=== PATIENT | male | born 1970 | race African-American/Black ===

== ENCOUNTER 2021-12-05 19:52 | Emergency (ER) | payer SELFPAY ==
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
[2021-12-05] MEDS ORDERED: TETANUS & DIPHTHERIA TOX,ADULT 0.5 ML VIAL ONE (20:57)
[2021-12-05] MEDS ORDERED: CEFAZOLIN SODIUM 1 GM/VIAL ONE (20:57)
[2021-12-05] MEDS ORDERED: NA CHLORIDE 0.9% 100 ML IV ONE (20:59)
[2021-12-05 21:05] LABS: Absolute Lymphocytes (CBC) 1.9 K/uL (0.7-4.9); Hematocrit 39.3 % (39.6-49.0); Lymphocytes % 11.8 % (15.3-44.8); MPV 8.5 fL (7.6-11.3)
[2021-12-05 21:22] LABS: Potassium 4.1 mmol/L (3.5-5.1)
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
[2021-12-05] MEDS ORDERED: LIDOCAINE 1% MPF 5 ML VIAL ONE (23:07)
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
[2021-12-06 00:38] VITALS: O2SAT 100
[2021-12-06 00:42] VITALS: BP 138/94; TEMP 98.3
== END 2021-12-06 00:25 | disposition short-term general hospital (02) ==
LOC: ER 19:52
PROC: 0JQ60ZZ Repair Chest Subcutaneous Tissue and Fascia, Open Approach (ICD-10-PCS; principal; 2021-12-06)
DX: S21.111A Laceration without foreign body of right front wall of thorax without penetration into thoracic cavity, initial encounter (principal); J93.81 Chronic pneumothorax; J98.2 Interstitial emphysema; F17.210 Nicotine dependence, cigarettes, uncomplicated; Z23 Encounter for immunization; Z20.822 Contact with and (suspected) exposure to COVID-19
CPT/HCPCS: 36415; 71045; 71260; 80048; 85025; 86850; 86900; 86901; 90471; 90714; 96365; 96366; 99285; J0690; Q9967; U0003

== ENCOUNTER 2021-12-22 13:36 | Emergency (ER) | payer SELFPAY ==
--- OUTSIDE RECORDS SUMMARY | 2021-12-22 13:38 | XMS REPORT | Continuity of Care Document ---
:1970 Author Organization [facility] t Address [address] [place] [address] Care Team Providers Name Role Phone Pcp, Does Not Have A Primary Care Physician KELLY JAMES Attending Clinician Unavailable Brenton EDMONDS Attending Clinician Unavailable Brenton Doyle Attending Clinician Doctor Unassigned, Name Attending Clinician Unavailable MELCHOR MILLER Admitting Clinician Unavailable Brenton EDMONDS Admitting Clinician Unavailable Payers Payer Name Policy Type Policy Number Effective Date Expiration Date S [facility] [place] [place] MEDICAID PENDING PENDING 2021 00:00:00 Problems Condition Condition Condition Status Onset Resolution Last Treating Co mments Source Name Details Category Date Date Treatment Clinician Date No known No known Disease Unive rs active active ity of problems problems [facility] Allergies, Adverse Reactions, Alerts Allergy Allergy Status Severity Reaction(s) Onset Inactive Treating Comm ents Source Name Type Date Date Clinician NO KNOWN Drug Active [facility] ALLERGIE Class [facility] [place] [facility] Social History Social Habit Start Date Stop Date Quantity Comments Source Exposure to Not sure [facility] SARS-CoV-2 (event) Medica l Branch Sex Assigned At [birth year] [facility] 00:00:00 00:00:00 Medical Branch Smoking Status Start Date Stop Date Source Unknown if ever smoked [facility] Medications Ordered Filled Start Stop Current Ordering Indication Dosage Frequency Signature Comments Components Source Medication Medication Date Date Medication? Clinician (SIG) Name Name ondansetron No 4mg 4 mg, Univ ers (ZOFRAN-ODT 11-18 Oral, ity of ) 02:00: 01:02 ONCE, 1 [place] disintegrat 00 :00 dose, On Medi ximena ing tablet e Branch 4 mg 11/17/21 at 1999, Routine ondansetron Yes [id number] 4mg Take 1 Univers 4 mg 1-25 tablet by ity of disintegrat 00:00: mouth [place] ing tablet 00 every 8 Medica l (eight) Branch hours as needed for Nausea and Vomiting (N/V). acetaminoph Yes 1{tbl} Take 1 Un lesa en-codeine 8-20 tablet by ity of 300-30 mg 00:00: mouth [place] tablet 00 every 6 Medical (six) Branch hours as needed for Pain (scale 4-6). acetaminoph Yes 1{tbl} Take 1 Un lesa en-codeine 8-20 tablet by ity of 300-30 mg 00:00: mouth [place] tablet 00 every 6 Medical (six) Branch hours as needed for Pain (scale 4-6). neomycin-po 2015-10 Yes 4[drp] Place 4 U nivers lymyxin-hyd 2-15 Drops in ity of rocortisone 00:00: left ear 3 [place] (CORTISPORI 00 (three) Medic al N OTIC times Branch SUSPENSION) daily. 3.5-10,000- 1 mg/mL-unit/ mL-% otic susp traMADOL 2015-10 Yes 50mg Take 1 Univers (ULTRAM) 50 2-15 tablet by ity of mg tablet 00:00: mouth [place] 00 every 6 Medical (six) Branch hours as needed for Pain (scale 7-10). neomycin-po 2015-10 Yes 4[drp] Place 4 U nivers lymyxin-hyd 2-15 Drops in ity of rocortisone 00:00: left ear 3 [place] (CORTISPORI 00 (three) Medic al N OTIC times Branch SUSPENSION) daily. 3.5-10,000- 1 mg/mL-unit/ mL-% otic susp traMADOL 2015-10 Yes 50mg Take 1 Univers (ULTRAM) 50 2-15 tablet by ity of mg tablet 00:00: mouth [place] 00 every 6 Medical (six) Branch hours as needed for Pain (scale 7-10). ibuprofen 2015-10 Yes 400mg Take 1 Unive rs (MOTRIN) 0-31 tablet by ity of 400 mg 00:00: mouth [place] tablet 00 every 6 Medical (six) Branch hours as needed for Pain (scale 4-6). ibuprofen 2015-10 Yes 400mg Take 1 Unive rs (MOTRIN) 0-31 tablet by ity of 400 mg 00:00: mouth [place] tablet 00 every 6 Medical (six) Branch hours as needed for Pain (scale 4-6). Immunizations Ordered Filled Immunization Date Status Comments [facility] e Immunization Name Name Td 2018-06-12 Completed [facility] Td 2018-06-12 Completed [facility] Td 2018-01-23 Completed [facility] Td 2018-01-23 Completed [facility]:00:00 [facility] Vital Signs Vital Name Observation Time Observation Value Comments Source Systolic blood 2021-11-18 00:32:00 147 mm[Hg] Univer sity of pressure [facility] Diastolic blood 2021-11-18 00:32:00 99 mm[facility]Hg[facility] Heart rate 2021-11-18 00:32:00 89 /min [facility] Body temperature 2021-11-18 00:32:00 36.78 Angela [facility] Respiratory rate 2021-11-18 00:32:00 14 /min [facility] Body weight 2021-11-18 00:32:00 63.504 kg [facility] BMI 2021-11-18 00:32:00 19.53 kg/m2 [facility] Oxygen saturation in 2021-11-18 00:32:00 100 /min University Arterial blood by [facility] Pulse oximetry Branch Procedures Procedure Date / Time Performed Performing Clinician Sourc e URINALYSIS 2021-11-18 01:02:00 Sammy Edmonds [facility] CONSENT/REFUSAL FOR 2021-11-18 00:23:39 [facility]igned, [facility] AND Name Medical Branch TREATMENT Encounters Start End Encounter Admission Attending Care Care Encounter Source Date/Time Date/Time Type Type Clinicians Facility Department ID 2021-12-06 2021-12-06 Emergency E ERIKA, [facility] [address] [facility] 01:20:00 05:22:00 FISH 2021-11-17 2021-11-17 [facility] [id number] Univers 18:34:00 19:54:00 SAMMY [facility] 2021-11-17 2021-11-17 Emergency [facility] [id number] Univers 18:34:00 19:54:00 Sammy HOLCOMB [id number] i ty of [place] [id number] [facility] [id number] [facility] 084 Branch 2021-11-17 2021-11-17 Orders Doctor PORTER [id number] Univers 00:00:00 00:00:00 Only Unassigned, ANGY [id number] ity of [place] [facility] [id number] [facility] [id number] [facility] 009 Branch 2018-06-12 2018-06-13 Emergency X [facility] ERT [id number] Univers 21:24:59 01:40:00 [facility] Results This patient has no known results.
--- NOTE | 2021-12-22 13:47 | EDPHYS ---
Physician Documentation [facility] Name: Stephen Lazo Age: 51 yrs Sex: Male : 1970 Arrival Date: 12/22/2021 Time: 13:37 Bed Waiting Private MD: ED Physician Monique Melissa HPI: 12/22 15:29 This 51 yrs old Black Male presents to ER via Ambulatory with complaints of Suture kb Removal. 15:29 The patient has kimberly on the anterior aspect of right upper chest. Previous kb treatment: The patient was initially treated on December 06, 2021, the care was rendered at [facility], Treatment type: The patient's original treatment included kimberly. Sutures/kimberly progress: The patient has no c/o's. The wound is well-healing with no redness, swelling, discharge, or dehiscence reported. The patient has not experienced similar symptoms in the past. The patient has not recently seen a physician. Historical: - Allergies: 13:44 No Known Allergies; jl7 - Home Meds: 13:44 None [Active]; jl7 - PMHx: 13:44 None; jl7 - PSHx: 13:44 None; jl7 - Immunization history:: Adult Immunizations up to date. - Social history:: Smoking status: Patient reports the use of cigarette tobacco products, smokes one pack cigarettes per day. ROS: 15:27 Constitutional: Negative for fever, chills, and weight loss. kb 15:27 Skin: Positive for of the anterior aspect of right upper chest, kimberly in place. 15:27 All other systems are negative. Exam: 15:27 Constitutional: This is a well developed, well nourished patient who is awake, alert, kb and in no acute distress. Head/Face: Normocephalic, atraumatic. ENT: Moist Mucous membranes Respiratory: Respirations even and unlabored. No increased work of breathing. Talking in full sentences MS/ Extremity: Pulses equal, no cyanosis. Neurovascular intact. Full, normal range of motion. Neuro: Awake and alert, GCS 15, oriented to person, place, time, and situation. Moves all extremities. Normal gait. Psych: Awake, alert, with orientation to person, place and time. Behavior, mood, and affect are within normal limits. 15:27 Skin: Wound recheck: Staple laceration closure: the wound is healing well, the edges are well approximated, no evidence of dehiscence, no drainage, no erythema, no swelling. Vital Signs: 13:42 Pulse 91; Resp 15; Temp 98.1; Pulse Ox 98% ; Weight 63.5 kg; Pain 0/10; jl7 13:45 BP 144 / 99; jl7 Procedures: 15:27 Suture/Staple removal: Removed 4 kimberly, from anterior aspect of right upper chest, kb site appears well healed, Patient tolerated well. MDM: 13:46 Patient medically screened. kb 15:28 Data reviewed: vital signs, nurses notes. Data interpreted: Pulse oximetry: on room air kb is 98 %. Interpretation: normal. Counseling: I had a detailed discussion with the patient and/or guardian regarding: the historical points, exam findings, and any diagnostic results supporting the discharge/admit diagnosis, the need for outpatient follow up, a family practitioner, to return to the emergency department if symptoms worsen or persist or if there are any questions or concerns that arise at home. Administered Medications: No medications were administered Disposition Summary: 12/22/21 13:46 Discharge Ordered Location: Home kb Condition: Stable kb Diagnosis - Encounter for removal of sutures - kimberly kb Followup: kb - With: Emergency Department - When: As needed - Reason: Worsening of condition Followup: kb - With: Private Physician - When: 2 - 3 days - Reason: Recheck today's complaints, Continuance of care, Re-evaluation by your physician Discharge Instructions: - Discharge Summary Sheet kb - Suture Removal, Care After kb Forms: - Medication Reconciliation Form kb - Thank You Letter kb - Antibiotic Education kb - Prescription Opioid Use kb Signatures: Carolynn Argueta, EDUARDOC LAUREN-Tamika Kerns, RN RN jl7
--- NOTE | 2021-12-22 13:47 | ER ---
Nurse's Notes [facility] Name: Stephen Lazo Age: 51 yrs Sex: Male : 1970 Arrival Date: 12/22/2021 Time: 13:37 Bed Waiting Private MD: Diagnosis: Encounter for removal of sutures-kimberly Presentation: 12/22 13:42 Chief complaint: Patient states: Staple removal from right upper chest. Coronavirus jl7 screen: At this time, the client does not indicate any symptoms associated with coronavirus-19. Ebola Screen: No symptoms or risks identified at this time. Initial Sepsis Screen: Does the patient meet any 2 criteria? No. Patient's initial sepsis screen is negative. Does the patient have a suspected source of infection? No. Patient's initial sepsis screen is negative. Risk Assessment: Do you want to hurt yourself or someone else? Patient reports no desire to harm self or others. Onset of symptoms was December 07, 2021. 13:42 Method Of Arrival: Ambulatory jl7 13:42 Acuity: THOMAS 4 jl7 Triage Assessment: 13:44 General: Appears in no apparent distress. uncomfortable, Behavior is calm, cooperative, jl7 appropriate for age. Pain: Denies pain. Historical: - Allergies: 13:44 No Known Allergies; jl7 - Home Meds: 13:44 None [Active]; jl7 - PMHx: 13:44 None; jl7 - PSHx: 13:44 None; jl7 - Immunization history:: Adult Immunizations up to date. - Social history:: Smoking status: Patient reports the use of cigarette tobacco products, smokes one pack cigarettes per day. Screenin:45 Abuse screen: Denies threats or abuse. Nutritional screening: No deficits noted. jl7 Tuberculosis screening: No symptoms or risk factors identified. Fall Risk None identified. Assessment: 13:45 Reassessment: DG Pradhan in triage removing kimberly. jl7 Vital Signs: 13:42 Pulse 91; Resp 15; Temp 98.1; Pulse Ox 98% ; Weight 63.5 kg; Pain 0/10; jl7 13:45 BP 144 / 99; jl7 ED Course: 13:37 Patient arrived in ED. ds1 13:40 Carolynn Argueta FNP-C is PHCP. kb 13:40 Monique Melissa MD is Attending Physician. kb 13:44 Triage completed. jl7 13:44 Arm band placed on right wrist. jl7 13:45 Patient has correct armband on for positive identification. jl7 13:45 No provider procedures requiring assistance completed. Patient did not have IV access jl7 during this emergency room visit. Administered Medications: No medications were administered Outcome: 13:46 Discharge ordered by MD. kb 13:47 Discharged to home ambulatory. jl7 13:47 Condition: stable 13:47 Discharge instructions given to patient, Instructed on discharge instructions, follow up and referral plans. Demonstrated understanding of instructions, follow-up care. 13:47 Patient left the ED. jl7 Signatures: Carolynn Argueta, ZIPPER CUTTER-C ZIPPER CUTTER-Luciana Son ds1 Tamika Franks RN RN jl7 Corrections: (The following items were deleted from the chart) 13:46 13:45 Reassessment: DG Pradhan in triage assessing pt jl7 jl7
[2021-12-22 13:57] VITALS: BP 144/99; TEMP 98.1; O2SAT 98
== END 2021-12-22 13:47 | disposition home or self-care (01) ==
LOC: ER 13:36
DX: Z48.02 Encounter for removal of sutures (principal)
CPT/HCPCS: 99281